=== PATIENT | female | born 1990 | race Caucasian/White ===

== ENCOUNTER 2021-12-18 09:09 | Outpatient (CLI) | payer OTHER | END 2021-12-18 23:59 | disposition home or self-care (01) | LOC: RAD 09:09 | PROVIDERS: ATTEND Chiropractor | DX: J45.909 Unspecified asthma, uncomplicated (principal); J01.90 Acute sinusitis, unspecified | CPT/HCPCS: 70220; 71046 ==

== ENCOUNTER 2022-02-28 16:19 | Outpatient (CLI) | payer OTHER ==
[~2022-02-28] VITALS: Ht 172.7 cm; Wt 81.6 kg
[2022-02-28] MEDS ORDERED: albuterol 2.5 MG/3 ML nebule NEB PRN (16:55)
== END 2022-02-28 23:59 | disposition home or self-care (01) ==
LOC: RT 16:19
PROVIDERS: ATTEND Chiropractor
DX: J45.909 Unspecified asthma, uncomplicated (principal); Z79.899 Other long term (current) drug therapy; Z87.891 Personal history of nicotine dependence
CPT/HCPCS: 94060; 94760